=== PATIENT | female | born 1995 ===

== ENCOUNTER 2018-08-31 00:10 | Emergency (ER) | payer MEDICAID ==
[2018-08-31 01:42] VITALS: BMI 42.0
[2018-08-31 02:22] LABS: BASO # 0.1 K/uL (0.0-0.2); BASO % 0.8 % (0.0-2.0); EOS % 0.5 % (0.0-4.0); LYMPH # 2.8 K/uL (1.0-4.3); LYMPH % 30.8 % (20.0-40.0); MEAN CELL VOLUME 78.7 fl (81.0-99.0); MEAN PLATELET VOLUME 10.4 fl (7.2-11.7); MONO # 0.7 K/uL (0.0-0.8); MONO % 7.2 % (0.0-10.0); NEUT # 5.6 K/uL (1.8-7.0); NEUT % 60.7 % (50.0-75.0); NRBC % 0.1 % (0.0-0.0); RBC 4.23 Mil/uL (3.80-5.20); RED CELL DISTRIBUTION WIDTH 14.6 % (11.5-14.5); WHITE BLOOD COUNT 9.2 K/uL (4.8-10.8)
[2018-08-31 02:30] LABS: SQUAMOUS EPITHIAL 3 /hpf (0-5); URINE BACTERIA RARE (<OCC); URINE BILIRUBIN NEGATIVE (NEGATIVE); URINE BLOOD NEGATIVE (NEGATIVE); URINE CLARITY SLIGHTY-CLOUDY (Clear); URINE COLOR YELLOW (YELLOW); URINE GLUCOSE (UA) 50 mg/dL (NEGATIVE); URINE LEUKOCYTE ESTERASE NEG Leu/uL (Negative); URINE PROTEIN >=500 mg/dL (NEGATIVE); URINE UROBILINOGEN 0.2-1.0 mg/dL (0.2-1.0)
[2018-08-31 02:33] LABS: ALB/GLOB RATIO 0.9 (1.0-2.1); ALBUMIN 3.2 g/dL (3.5-5.0); ALT/SGPT 26 U/L (9-52); AST/SGOT 27 U/L (14-36); BLOOD UREA NITROGEN 12 mg/dl (7-17); CALCIUM 8.7 mg/dL (8.4-10.2); GFR NON-AFRICAN AMERICAN > 60
[2018-08-31 03:24] LABS: URIC ACID 5.5 mg/Dl (2.2-7.5)
--- NOTE | 2018-08-31 03:30 | OBHP ---
Datetime: 08/31/2018 01:00 IP Adm Impression: Term, intrauterine IP Chief Complaint Other: skin numbness IP Admit Plan: Discharge home Admit Comment, IP Provider: 23 y/o female at 37.6 wk GA w/ pmhx of DM2 presents to [facility] w/ comp laints of [place]-umbilical numbness and hand swelling. She reports that this started last week and wors ened today. She had one episode of vomiting on Sunday. She denies alleviating/aggravating factors. Sh e denies headache, numbness/tingling in upper or lower extremities, visual changes, CP, SOB. She talia es trauma to abdomen. She denies abdominal pain, vaginal bleed/discharge/fluid loss, urinary symptoms . She endorses movement. She was last sexually active 3 days ago. PMD: Dr. Hassan Pmhx: DM2 Famhx: mother w/ DM SurgHx: denies Socialhx: denies tobacco, etoh, recreational drug use HomeRx: Insluin started during Allergies: NKDA ROS negative except as per HPI PE: Gen: lying in bed comfortably, no acute distress Neuro: alert/oriented x3, CN 2-12 intact Heart: S1 S2 Present, normal RRR Lungs: normal respiratory effort, clear to auscultation bilaterally Abdomen: gravid, soft, non-tender. Loss of sensation to touch periumbilical area Extremities: edema +1, no tenderness or erythema Assessment and Plan: 23 y/o female at 37.6 wk IUP w/ pmhx of DM2 presents to [facility] w/ complaints of [place]-umbilical skin numbness and hand swelling. BP 147/84 at bedside. Neuro exam wnl. NST reactive, no contractions on toco. Will check U/A, CBC, CMP, uric acid, LDH to r/o pre-eclampsia. 3:00 U/A shows proteinurea >=500, BPs ranging 120s-140s systolic; likley due to gestational hypert ension versus pre-eclampsia. Patient advised to go to [facility] for follow up evaluation and possible delivery as soon as josie reyna is discharged from [facility]. Dr. Hassan phoned and made aware. Patient is stable for discharge and states she will take a cab to [facility]. Case discussed w/ attending kory Hunter [facility] Hospitalist Addendum: Pt seen and examined by me. Agree w/ above. 23 yo G1 at 37+6 wks w/ pre -gestational DM, w/ c/o areas of numbness on abdomen and b/l hand swelling. Pt denies HENSON, vision caridad nges, abd pain, N/V. On, exam, pt appears comfortable. Abd: soft, NT, gravid. Hands do not appear s wollen although pt reports that she feels prreesure when making a fist. LES 1+ edema, DTRs 0. BPs 1 20's-140's /60-80's. CBC and CMP nl. Urine dip >=500. Pt sees Dr. Hassan at a clinic near [facility]. Spoke to Dr. Hassan regarding this pt. Rec that she go to [facility] for eval and possible delivery. (ES) Pelvic Type - PN: Not Done Extremities - PN: Normal Abdomen - PN: Normal Back - PN: Not Done Breast - PN: Not Done Lungs - PN: Normal Heart - PN: Normal Thyroid - PN: Not Done Neurologic - PN: Normal General - PN: Normal FHR - Baseline A Provider: 145 Contraction Comments Provider: None Gestation - Est Wks by US: 37.6 EGA AdmitDate IP: 37.6 Vital Signs Provider: Reviewed Vital Signs Provider Details: 1 elevated BP readin/84 IP Chief Complaint: Other NICHD Variability Prov Fetus A: Moderate 6-25bpm NICHD Accel Fetus A IP Provider: [id number] NICHD Decel Fetus A IP Provider: None Genitourinary Exam: Normal DTRs - PN: Normal
--- NOTE | 2018-08-31 04:31 | OBDCSUM ---
Datetime: 08/31/2018 03:43 Discharged to, Provider: Home Follow up at, Provider: [facility] Disch Instr Activity: Normal activity Disch Instr Diet: Regular Discharge Time: 08/31/2018 03:44 Follow up in weeks, Provider: SENG Disch Referrals: None Disch Activity Restrictions: No lifting Discharge Diagnosis Prov Other: Gestational HTN at 37+ wks
[2018-08-31 08:15] VITALS: BP 136/77; PULSE 78
== END 2018-08-31 04:00 | disposition home or self-care (01) ==
LOC: H.EROB2 00:10
DX: O26.93 Pregnancy related conditions, unspecified, third trimester (principal); R20.0 Anesthesia of skin; O21.0 Mild hyperemesis gravidarum; O24.419 Gestational diabetes mellitus in pregnancy, unspecified control; Z3A.37 37 weeks gestation of pregnancy

== ENCOUNTER 2019-01-17 15:29 | Emergency (ER) | payer MEDICAID ==
[2019-01-17 15:29] VITALS: BMI 42.0
[2019-01-17 15:38] VITALS: RESP 18
[2019-01-17] MEDS ORDERED: Sodium Chloride 0.9% 1,000 ML IV STA (16:22)
[2019-01-17] MEDS ORDERED: Insulin Regular 100 units/ml SC STA (16:23)
[2019-01-17] MEDS ORDERED: Insulin Regular 100 units/ml ONE (16:41)
--- NOTE | 2019-01-17 16:50 | ED PDOC ---
Hyperglycemia/Hypoglycemia Time Seen by Provider: 01/17/19 15:53 Chief Complaint (Nursing): High Blood Sugar Chief Complaint (Provider): High Blood Sugar History Per: Patient History/Exam Limitations: no limitations Current Symptoms Are (Timing): Still Present Current Diabetic Medications: None : The patient does not have any of the infectious symptoms listed except for those marked. Treatment Prior To Provider Evaluation: Accucheck Additional Complaint(s): 23 year old female presents to the ED after being referred by an outside clinic for elevated blood sugar. Patient states she had gestational diabetes in 2016, but stopped taking insulin after delivery. Patient has not followed up until today. She denies any dizziness, dysuria, increased thirst. Accucheck found to be 427. PMD: none provided Past Medical History Reviewed: Historical Data, Nursing Documentation, Vital Signs Vital Signs: Last Vital Signs Temp 98.8 F 01/17/19 15:37 Pulse 90 01/17/19 15:37 Resp 18 01/17/19 15:37 BP 126/82 01/17/19 15:37 Pulse Ox 98 01/17/19 15:37 Primary Care Provider: Non [facility] Provider, - Medical History PMH: Diabetes (gestational ) - Family History Family History: States: Unknown Family Hx - Home Medications Home Medications: Ambulatory Orders Medication Instructions Recorded Metformin HCl [Glucophage] 500 mg PO BID #30 tablet 01/17/19 Nitrofurantoin Macrocrystals 100 mg PO BID #14 cap 01/17/19 [Macrobid] - Allergies Allergies/Adverse Reactions: Allergies Allergy/AdvReac Type Severity Reaction Status Date / Time No Known Allergies Allergy Verified 01/17/19 15:36 Review of Systems ROS Statement: Except As Marked, All Systems Reviewed And Found Negative Genitourinary Female: Negative for: Dysuria Neurological: Negative for: Dizziness Physical Exam - Reviewed Nursing Documentation Reviewed: Yes Vital Signs Reviewed: Yes - Physical Exam Appears: Positive for: Non-toxic, No Acute Distress Head Exam: Positive for: ATRAUMATIC, NORMOCEPHALIC Skin: Positive for: Normal Color, Warm, Dry Eye Exam: Positive for: Normal appearance, EOMI, PERRL Cardiovascular/Chest: Positive for: Regular Rate, Rhythm. Negative for: Murmur Respiratory: Positive for: Normal Breath Sounds. Negative for: Respiratory Distress Gastrointestinal/Abdominal: Positive for: Normal Exam, Soft. Negative for: Tenderness Extremity: Positive for: Normal ROM (upper and lower). Negative for: Pedal Edema, Deformity Neurological/Psych: Positive for: Awake, Alert, Oriented (x3). Negative for: Motor/Sensory Deficits - Laboratory Results Result Diagrams: 01/17/19 16:43 01/17/19 16:43 - ECG O2 Sat by Pulse Oximetry: 98 (RA) Pulse Ox Interpretation: Normal Medical Decision Making Medical Decision Making: Time: 1622 Plan: --Labs --IV fluids --Subcutaneous insulin --UA Scribe Attestation: Documented by Treasure Ferrari, acting as a scribe for Seven Wright MD. Provider Scribe Attestation: All medical record entries made by the Scribe were at my direction and personally dictated by me. I have reviewed the chart and agree that the record accurately reflects my personal performance of the history, physical exam, medical decision making, and the department course for this patient. I have also personally directed, reviewed, and agree with the discharge instructions and disposition. Disposition - Clinical Impression Clinical Impression: Hyperglycemia, Diabetes, UTI (urinary tract infection) - Patient ED Disposition Is Patient to be Admitted: No Counseled Patient/Family Regarding: Studies Performed, Diagnosis, Need For Followup, Rx Given - Disposition Referrals: [facility] [Outside] Disposition: Routine/Home Disposition Time: 18:40 Condition: FAIR Prescriptions: Metformin HCl [Glucophage] 500 mg PO BID #30 tablet Nitrofurantoin Macrocrystals [Macrobid] 100 mg PO BID #14 cap Instructions: Hyperglycemia, Adult, Type 2 Diabetes, Type 1 Diabetes, Urinary Tract Infections in Adults Forms: Phase III Development (Turkish)
[2019-01-17 17:07] LABS: BASO # 0.1 K/uL (0.0-0.2); BASO % 0.6 % (0.0-2.0); EOS # 0.1 K/uL (0.0-0.7); EOS % 1.3 % (0.0-4.0); HEMOGLOBIN 11.1 g/dL (12.0-16.0); MEAN CELL VOLUME 67.8 fl (81.0-99.0); MEAN CORPUSCULAR HEMOGLOBIN 21.4 pg (27.0-31.0); MEAN CORPUSCULAR HGB CONC 31.7 g/dL (33.0-37.0); MEAN PLATELET VOLUME 9.7 fl (7.2-11.7); MONO # 0.4 K/uL (0.0-0.8); MONO % 4.4 % (0.0-10.0); NEUT # 4.6 K/uL (1.8-7.0); NEUT % 56.7 % (50.0-75.0); NRBC % 0.1 % (0.0-0.0); RBC 5.19 Mil/uL (3.80-5.20); RED CELL DISTRIBUTION WIDTH 16.5 % (11.5-14.5); WHITE BLOOD COUNT 8.1 K/uL (4.8-10.8)
[2019-01-17 17:11] LABS: SQUAMOUS EPITHIAL 6 /hpf (0-5); URINE BILIRUBIN NEGATIVE (NEGATIVE); URINE BLOOD NEGATIVE (NEGATIVE); URINE CLARITY SLIGHTY-CLOUDY (Clear); URINE COLOR YELLOW (YELLOW); URINE GLUCOSE (UA) >=500 mg/dL (NEGATIVE); URINE LEUKOCYTE ESTERASE TRACE Leu/uL (Negative); URINE PROTEIN 30 mg/dL (NEGATIVE); URINE UROBILINOGEN 0.2-1.0 mg/dL (0.2-1.0)
[2019-01-17 17:30] LABS: ALB/GLOB RATIO 1.3 (1.0-2.1); ALBUMIN 4.5 g/dL (3.5-5.0); ALT/SGPT 154 U/L (9-52); AST/SGOT 131 U/L (14-36); BLOOD UREA NITROGEN 8 mg/dl (7-17); CALCIUM 9.3 mg/dL (8.4-10.2); GFR NON-AFRICAN AMERICAN > 60
[2019-01-17 17:35] VITALS: PULSE 88
[2019-01-17 18:57] VITALS: BP 114/70; TEMP 98.5; O2SAT 100
--- NOTE | 2019-01-18 08:52 | CARD ---
APPROVED REPORT Date of service: 01/17/2019 EKG Measurement Heart [id number] <Conclusion> Normal sinus rhythm Normal ECG
== END 2019-01-17 18:57 | disposition home or self-care (01) ==
LOC: H.ER 15:29
DX: E11.65 Type 2 diabetes mellitus with hyperglycemia (principal); Z79.4 Long term (current) use of insulin; N39.0 Urinary tract infection, site not specified
CPT/HCPCS: 80053; 81003; 81025; 82948; 85025; 93005; 96372; 99284; J7030